=== PATIENT | male | born 2000 | race Caucasian/White ===

== ENCOUNTER 2020-04-23 17:08 | Inpatient (IN) | payer OTHER, SELFPAY ==
[~2020-04-23] VITALS: Ht 162.6 cm; Wt 74.8 kg
[2020-04-23 17:26] VITALS: BP_SYST 141
[2020-04-23] MEDS ORDERED: MIDAZOLAM HCL 5 MG/5 ML VIAL IVP ONE (17:45)
[2020-04-23] MEDS ORDERED: KETAMINE 30 MG/3 ML SYRINGE IVP ONE (17:45)
[2020-04-23 18:48] LABS: BASOPHILS % (AUTO) 0.2 % (0.0-2.0); HEMATOCRIT 51.4 % (36-54); HEMOGLOBIN 17.5 g/dL (14.0-18.0); LYMPHOCYTES # (AUTO) 0.6 K/uL (1.0-5.5); LYMPHOCYTES % (AUTO) 6.6 % (20.5-51.5); MEAN CORPUSCULAR HEMOGLOBIN 30 pg (27-31); MEAN CORPUSCULAR HGB CONC 34 % (32-36); MEAN CORPUSCULAR VOLUME 88 fL (79.0-98.0); MONOCYTES % (AUTO) 0.5 % (1.7-9.3); NEUTROPHILS # (AUTO) 8.6 K/uL (1.8-7.7); NEUTROPHILS % (AUTO) 92.7 % (40.0-70.0); PLATELET COUNT (AUTO) 299 K/uL (130-430); RED BLOOD CELL COUNT(AUTO) 5.82 MIL/uL (4.2-6.2); RED CELL DISTRIBUTION WIDTH 12.4 % (9.0-15.0); WHITE BLOOD COUNT (AUTO) 9.2 K/uL (4.8-10.8)
[2020-04-23 18:50] LABS: CALCIUM 10.3 mg/dL (8.4-11.0); CREATININE 1.22 mg/dL (0.55-1.30); POTASSIUM 3.8 mmol/L (3.5-5.1)
[2020-04-23 18:55] LABS: ALBUMIN 4.6 g/dL (3.4-4.8)
[2020-04-23 18:56] LABS: INR 1.1 (0.80-1.20); PROTHROMBIN TIME 10.8 SECS (9.5-12.5)
[2020-04-23] MEDS ORDERED: ONDANSETRON HCL 4 MG/2 ML VIAL ONE (19:07)
[2020-04-23] MEDS ORDERED: ONDANSETRON HCL 4 MG/2 ML VIAL IVP PRN (19:15)
[2020-04-23] MEDS ORDERED: LORazepam 2 MG/ML VIAL IVP PRN (19:15)
[2020-04-23] MEDS ORDERED: MUPIROCIN 2% TOPICAL OINTMENT 22 GM NS PRN (19:15)
[2020-04-23] MEDS ORDERED: ZOLPIDEM TARTRATE 5 MG TABLET PO PRN (19:15)
[2020-04-23] MEDS ORDERED: DOCUSATE SODIUM 100 MG CAPSULE PO PRN (19:15)
[2020-04-23] MEDS ORDERED: NACL 0.9% 1,000 ML IV SCH (19:15)
[2020-04-23] MEDS ORDERED: MAGNESIUM SULFATE 50 ML IV PRN (19:15)
[2020-04-23] MEDS ORDERED: MORPHINE 2 MG/ML INJ. SYRINGE IVP PRN (19:15)
[2020-04-23] MEDS ORDERED: POTASSIUM CHLORIDE 20 MEQ TAB.PRT.SR PO PRN (19:15)
[2020-04-23] MEDS: MORPHINE 4 MG/ML INJ. SYRINGE IVP PRN (23:09)
[2020-04-24] VITALS (7 sets, daily range): BP systolic 124–142
[2020-04-24] MEDS: MORPHINE 4 MG/ML INJ. SYRINGE IVP PRN (02:57)
[2020-04-24 07:18] LABS: BASOPHILS % (AUTO) 0.2 % (0.0-2.0); EOSINOPHILS % (AUTO) 0.1 % (0.0-4.0); HEMATOCRIT 51.9 % (36-54); HEMOGLOBIN 17.6 g/dL (14.0-18.0); LYMPHOCYTES # (AUTO) 2.3 K/uL (1.0-5.5); LYMPHOCYTES % (AUTO) 13.6 % (20.5-51.5); MEAN CORPUSCULAR HEMOGLOBIN 30 pg (27-31); MEAN CORPUSCULAR HGB CONC 34 % (32-36); MEAN CORPUSCULAR VOLUME 88 fL (79.0-98.0); MONOCYTES # (AUTO) 1.5 K/uL (0.0-1.0); MONOCYTES % (AUTO) 9.1 % (1.7-9.3); NEUTROPHILS # (AUTO) 12.9 K/uL (1.8-7.7); PLATELET COUNT (AUTO) 286 K/uL (130-430); RED BLOOD CELL COUNT(AUTO) 5.92 MIL/uL (4.2-6.2); RED CELL DISTRIBUTION WIDTH 12.8 % (9.0-15.0); WHITE BLOOD COUNT (AUTO) 16.8 K/uL (4.8-10.8)
[2020-04-24 08:10] LABS: CALCIUM 9.1 mg/dL (8.4-11.0); CREATININE 1.12 mg/dL (0.55-1.30); POTASSIUM 4.2 mmol/L (3.5-5.1)
[2020-04-24] MEDS: MORPHINE 2 MG/ML INJ. SYRINGE IVP PRN ×2 (09:13→17:22)
[2020-04-24] MEDS: BENZOCAINE/MENTHOL 1 EACH LOZENGE MM PRN ×2 (12:18→17:22)
[2020-04-24] MEDS ORDERED: LEVOFLOXACIN 500 MG/D5W 100 ML IV SCH (21:15)
[2020-04-24] MEDS: IPRATROPIUM/ALBUTEROL SULFATE 3 ML AMPUL.NEB (DUONEB) INH SCH (23:26)
[2020-04-24] MEDS ORDERED: AZITHROMYCIN 500 MG/VIAL (ZITHROMAX) IV ONE (23:28)
[2020-04-24] MEDS: AZITHROMYCIN 500 MG in NS 250 ML IV SCH (23:45)
[2020-04-25] MEDS: MORPHINE 2 MG/ML INJ. SYRINGE IVP PRN
[2020-04-25] MEDS: BENZOCAINE/MENTHOL 1 EACH LOZENGE MM PRN (00:45)
[2020-04-25] MEDS ORDERED: ENOXAPARIN SODIUM 30 MG/0.3 ML SYRINGE SUBCUT ONE (00:45)
[2020-04-25] MEDS: IPRATROPIUM/ALBUTEROL SULFATE 3 ML AMPUL.NEB (DUONEB) INH SCH ×4 (03:50→19:54)
[2020-04-25 07:18] LABS: BASOPHILS % (AUTO) 0.2 % (0.0-2.0); EOSINOPHILS # (AUTO) 0.3 K/uL (0.0-0.4); EOSINOPHILS % (AUTO) 2.8 % (0.0-4.0); HEMATOCRIT 45.1 % (36-54); HEMOGLOBIN 15.5 g/dL (14.0-18.0); LYMPHOCYTES # (AUTO) 3.3 K/uL (1.0-5.5); LYMPHOCYTES % (AUTO) 30.5 % (20.5-51.5); MEAN CORPUSCULAR HEMOGLOBIN 30 pg (27-31); MEAN CORPUSCULAR HGB CONC 34 % (32-36); MEAN CORPUSCULAR VOLUME 88 fL (79.0-98.0); MONOCYTES # (AUTO) 0.9 K/uL (0.0-1.0); MONOCYTES % (AUTO) 8.3 % (1.7-9.3); NEUTROPHILS # (AUTO) 6.3 K/uL (1.8-7.7); NEUTROPHILS % (AUTO) 58.2 % (40.0-70.0); PLATELET COUNT (AUTO) 249 K/uL (130-430); RED BLOOD CELL COUNT(AUTO) 5.14 MIL/uL (4.2-6.2); RED CELL DISTRIBUTION WIDTH 12.5 % (9.0-15.0); WHITE BLOOD COUNT (AUTO) 10.9 K/uL (4.8-10.8)
[2020-04-25 07:33] LABS: CALCIUM 8.7 mg/dL (8.4-11.0); CREATININE 1.12 mg/dL (0.55-1.30)
[2020-04-25 08:00] VITALS: BP_SYST 125
[2020-04-25] MEDS: MORPHINE 4 MG/ML INJ. SYRINGE IVP PRN ×4 (08:24→22:19)
[2020-04-25] MEDS: cefTRIAXone 1 GM in D5W 50 ML IV SCH (08:25)
[2020-04-25 12:00] VITALS: BP_SYST 135
[2020-04-25 16:00] VITALS: BP_SYST 132
[2020-04-25 20:00] VITALS: BP_SYST 142
[2020-04-25] MEDS: ENOXAPARIN SODIUM 40 MG/0.4 ML SYRINGE SUBCUT SCH (20:19)
[2020-04-25] MEDS: AZITHROMYCIN 500 MG in NS 250 ML IV SCH (20:20)
[2020-04-26] VITALS: BP_SYST 131
[2020-04-26] MEDS: IPRATROPIUM/ALBUTEROL SULFATE 3 ML AMPUL.NEB (DUONEB) INH SCH ×7 (00:12→23:42)
[2020-04-26 04:00] VITALS: BP_SYST 138
[2020-04-26] MEDS: MORPHINE 4 MG/ML INJ. SYRINGE IVP PRN (04:25)
[2020-04-26] MEDS ORDERED: HYDROmorphone 2 MG/ML VIAL IVP ONE (06:45)
[2020-04-26 07:44] LABS: BASOPHILS % (AUTO) 0.2 % (0.0-2.0); EOSINOPHILS # (AUTO) 0.4 K/uL (0.0-0.4); EOSINOPHILS % (AUTO) 5.6 % (0.0-4.0); HEMATOCRIT 40.8 % (36-54); LYMPHOCYTES % (AUTO) 40.4 % (20.5-51.5); MEAN CORPUSCULAR HEMOGLOBIN 30 pg (27-31); MEAN CORPUSCULAR HGB CONC 34 % (32-36); MEAN CORPUSCULAR VOLUME 88 fL (79.0-98.0); MONOCYTES # (AUTO) 0.5 K/uL (0.0-1.0); MONOCYTES % (AUTO) 7.4 % (1.7-9.3); NEUTROPHILS # (AUTO) 3.4 K/uL (1.8-7.7); NEUTROPHILS % (AUTO) 46.4 % (40.0-70.0); PLATELET COUNT (AUTO) 223 K/uL (130-430); RED BLOOD CELL COUNT(AUTO) 4.66 MIL/uL (4.2-6.2); RED CELL DISTRIBUTION WIDTH 12.4 % (9.0-15.0)
[2020-04-26 08:00] VITALS: BP_SYST 148
[2020-04-26 08:18] LABS: CALCIUM 8.8 mg/dL (8.4-11.0); CREATININE 0.91 mg/dL (0.55-1.30); POTASSIUM 3.9 mmol/L (3.5-5.1)
[2020-04-26 08:25] LABS: WHITE BLOOD COUNT (AUTO) 7.4 K/uL (4.8-10.8)
[2020-04-26] MEDS: cefTRIAXone 1 GM in D5W 50 ML IV SCH (09:28)
[2020-04-26 12:00] VITALS: BP_SYST 155
[2020-04-26 16:00] VITALS: BP_SYST 141
[2020-04-26 20:15] VITALS: BP_SYST 135
[2020-04-26] MEDS: AZITHROMYCIN 500 MG in NS 250 ML IV SCH (20:18)
[2020-04-26] MEDS: ENOXAPARIN SODIUM 40 MG/0.4 ML SYRINGE SUBCUT SCH (20:36)
[2020-04-26] MEDS: HYDROmorphone 2 MG/ML VIAL IVP PRN (22:16)
[2020-04-26] MEDS: BENZOCAINE/MENTHOL 1 EACH LOZENGE MM PRN (22:16)
[2020-04-27 00:25] VITALS: BP_SYST 128
[2020-04-27] MEDS: IPRATROPIUM/ALBUTEROL SULFATE 3 ML AMPUL.NEB (DUONEB) INH SCH ×5 (03:00→23:28)
[2020-04-27 06:52] LABS: BASOPHILS % (AUTO) 0.1 % (0.0-2.0); EOSINOPHILS # (AUTO) 0.2 K/uL (0.0-0.4); EOSINOPHILS % (AUTO) 2.6 % (0.0-4.0); HEMATOCRIT 41.5 % (36-54); HEMOGLOBIN 14.3 g/dL (14.0-18.0); LYMPHOCYTES # (AUTO) 2.3 K/uL (1.0-5.5); LYMPHOCYTES % (AUTO) 30.4 % (20.5-51.5); MEAN CORPUSCULAR HEMOGLOBIN 30 pg (27-31); MEAN CORPUSCULAR HGB CONC 35 % (32-36); MEAN CORPUSCULAR VOLUME 87 fL (79.0-98.0); MONOCYTES # (AUTO) 0.5 K/uL (0.0-1.0); MONOCYTES % (AUTO) 6.8 % (1.7-9.3); NEUTROPHILS # (AUTO) 4.5 K/uL (1.8-7.7); NEUTROPHILS % (AUTO) 60.1 % (40.0-70.0); PLATELET COUNT (AUTO) 235 K/uL (130-430); RED BLOOD CELL COUNT(AUTO) 4.76 MIL/uL (4.2-6.2); RED CELL DISTRIBUTION WIDTH 12.4 % (9.0-15.0); WHITE BLOOD COUNT (AUTO) 7.5 K/uL (4.8-10.8)
[2020-04-27 07:19] LABS: CALCIUM 8.8 mg/dL (8.4-11.0); CREATININE 0.97 mg/dL (0.55-1.30); POTASSIUM 3.7 mmol/L (3.5-5.1)
[2020-04-27 07:57] VITALS: BP_SYST 124
[2020-04-27] MEDS: cefTRIAXone 1 GM in D5W 50 ML IV SCH (09:13)
[2020-04-27] MEDS: HYDROmorphone 2 MG/ML VIAL IVP PRN ×2 (10:05→20:46)
[2020-04-27 11:27] VITALS: BP_SYST 120
[2020-04-27 15:32] VITALS: BP_SYST 147
[2020-04-27 20:45] VITALS: BP_SYST 132
[2020-04-27] MEDS: AZITHROMYCIN 500 MG in NS 250 ML IV SCH (20:49)
[2020-04-27] MEDS: ENOXAPARIN SODIUM 40 MG/0.4 ML SYRINGE SUBCUT SCH (21:01)
[2020-04-28 00:25] VITALS: BP_SYST 118
[2020-04-28] MEDS: IPRATROPIUM/ALBUTEROL SULFATE 3 ML AMPUL.NEB (DUONEB) INH SCH ×6 (03:00→23:11)
[2020-04-28 06:18] LABS: BASOPHILS % (AUTO) 0.1 % (0.0-2.0); EOSINOPHILS # (AUTO) 0.3 K/uL (0.0-0.4); EOSINOPHILS % (AUTO) 3.7 % (0.0-4.0); HEMATOCRIT 41.9 % (36-54); HEMOGLOBIN 14.4 g/dL (14.0-18.0); LYMPHOCYTES # (AUTO) 2.2 K/uL (1.0-5.5); LYMPHOCYTES % (AUTO) 31.7 % (20.5-51.5); MEAN CORPUSCULAR HEMOGLOBIN 30 pg (27-31); MEAN CORPUSCULAR HGB CONC 34 % (32-36); MEAN CORPUSCULAR VOLUME 88 fL (79.0-98.0); MONOCYTES # (AUTO) 0.5 K/uL (0.0-1.0); MONOCYTES % (AUTO) 7.1 % (1.7-9.3); NEUTROPHILS # (AUTO) 3.9 K/uL (1.8-7.7); NEUTROPHILS % (AUTO) 57.4 % (40.0-70.0); PLATELET COUNT (AUTO) 248 K/uL (130-430); RED BLOOD CELL COUNT(AUTO) 4.78 MIL/uL (4.2-6.2); RED CELL DISTRIBUTION WIDTH 12.2 % (9.0-15.0); WHITE BLOOD COUNT (AUTO) 6.8 K/uL (4.8-10.8)
[2020-04-28 07:29] LABS: CALCIUM 9.1 mg/dL (8.4-11.0); CREATININE 0.89 mg/dL (0.55-1.30); POTASSIUM 3.9 mmol/L (3.5-5.1)
[2020-04-28 08:00] VITALS: BP_SYST 128
[2020-04-28] MEDS: cefTRIAXone 1 GM in D5W 50 ML IV SCH (08:06)
[2020-04-28 12:23] VITALS: BP_SYST 135
[2020-04-28 16:00] VITALS: BP_SYST 125
[2020-04-28 20:01] VITALS: BP_SYST 128
[2020-04-28] MEDS: ENOXAPARIN SODIUM 40 MG/0.4 ML SYRINGE SUBCUT SCH (21:23)
[2020-04-28] MEDS: HYDROmorphone 2 MG/ML VIAL IVP PRN (21:24)
[2020-04-28] MEDS: AZITHROMYCIN 500 MG in NS 250 ML IV SCH (21:25)
[2020-04-29 00:25] VITALS: BP_SYST 126
[2020-04-29] MEDS: IPRATROPIUM/ALBUTEROL SULFATE 3 ML AMPUL.NEB (DUONEB) INH SCH ×6 (03:00→23:29)
[2020-04-29 08:00] VITALS: BP_SYST 126
[2020-04-29] MEDS: cefTRIAXone 1 GM in D5W 50 ML IV SCH (08:49)
[2020-04-29 11:25] VITALS: BP_SYST 126
[2020-04-29 12:00] VITALS: BP_SYST 123
[2020-04-29 16:00] VITALS: BP_SYST 127
[2020-04-29 20:15] VITALS: BP_SYST 136
[2020-04-29] MEDS: ENOXAPARIN SODIUM 40 MG/0.4 ML SYRINGE SUBCUT SCH (20:30)
[2020-04-29] MEDS: HYDROmorphone 2 MG/ML VIAL IVP PRN (22:15)
[2020-04-30 00:15] VITALS: BP_SYST 128
[2020-04-30] MEDS: IPRATROPIUM/ALBUTEROL SULFATE 3 ML AMPUL.NEB (DUONEB) INH SCH ×6 (03:00→23:19)
[2020-04-30 07:54] LABS: CALCIUM 9.5 mg/dL (8.4-11.0); CREATININE 1.01 mg/dL (0.55-1.30); POTASSIUM 4.1 mmol/L (3.5-5.1)
[2020-04-30 07:55] VITALS: BP_SYST 111
[2020-04-30 08:02] LABS: BASOPHILS % (AUTO) 0.2 % (0.0-2.0); EOSINOPHILS # (AUTO) 0.3 K/uL (0.0-0.4); EOSINOPHILS % (AUTO) 3.6 % (0.0-4.0); HEMATOCRIT 45.7 % (36-54); HEMOGLOBIN 15.5 g/dL (14.0-18.0); LYMPHOCYTES # (AUTO) 1.9 K/uL (1.0-5.5); MEAN CORPUSCULAR HEMOGLOBIN 30 pg (27-31); MEAN CORPUSCULAR HGB CONC 34 % (32-36); MEAN CORPUSCULAR VOLUME 88 fL (79.0-98.0); MONOCYTES # (AUTO) 0.4 K/uL (0.0-1.0); MONOCYTES % (AUTO) 5.7 % (1.7-9.3); NEUTROPHILS # (AUTO) 5.2 K/uL (1.8-7.7); NEUTROPHILS % (AUTO) 66.5 % (40.0-70.0); PLATELET COUNT (AUTO) 260 K/uL (130-430); RED BLOOD CELL COUNT(AUTO) 5.18 MIL/uL (4.2-6.2); RED CELL DISTRIBUTION WIDTH 12.2 % (9.0-15.0); WHITE BLOOD COUNT (AUTO) 7.9 K/uL (4.8-10.8)
[2020-04-30] MEDS: cefTRIAXone 1 GM in D5W 50 ML IV SCH (08:29)
[2020-04-30 11:54] VITALS: BP_SYST 110
[2020-04-30 12:00] VITALS: BP_SYST 126
[2020-04-30 16:00] VITALS: BP_SYST 119
[2020-04-30 20:30] VITALS: BP_SYST 137
[2020-04-30] MEDS: ENOXAPARIN SODIUM 40 MG/0.4 ML SYRINGE SUBCUT SCH (20:42)
[2020-04-30] MEDS: HYDROmorphone 2 MG/ML VIAL IVP PRN (22:50)
[2020-05-01 00:38] VITALS: BP_SYST 137
[2020-05-01] MEDS: IPRATROPIUM/ALBUTEROL SULFATE 3 ML AMPUL.NEB (DUONEB) INH SCH ×6 (03:00→23:00)
[2020-05-01] MEDS: HYDROmorphone 2 MG/ML VIAL IVP PRN (04:09)
[2020-05-01 05:29] LABS: BASOPHILS % (AUTO) 0.3 % (0.0-2.0); EOSINOPHILS # (AUTO) 0.3 K/uL (0.0-0.4); EOSINOPHILS % (AUTO) 2.9 % (0.0-4.0); HEMATOCRIT 45.4 % (36-54); HEMOGLOBIN 15.8 g/dL (14.0-18.0); LYMPHOCYTES # (AUTO) 2.6 K/uL (1.0-5.5); LYMPHOCYTES % (AUTO) 27.3 % (20.5-51.5); MEAN CORPUSCULAR HEMOGLOBIN 31 pg (27-31); MEAN CORPUSCULAR HGB CONC 35 % (32-36); MEAN CORPUSCULAR VOLUME 88 fL (79.0-98.0); MONOCYTES # (AUTO) 0.6 K/uL (0.0-1.0); MONOCYTES % (AUTO) 6.2 % (1.7-9.3); NEUTROPHILS # (AUTO) 5.9 K/uL (1.8-7.7); NEUTROPHILS % (AUTO) 63.3 % (40.0-70.0); PLATELET COUNT (AUTO) 288 K/uL (130-430); RED BLOOD CELL COUNT(AUTO) 5.17 MIL/uL (4.2-6.2); RED CELL DISTRIBUTION WIDTH 12.1 % (9.0-15.0); WHITE BLOOD COUNT (AUTO) 9.4 K/uL (4.8-10.8)
[2020-05-01 05:41] LABS: CALCIUM 9.6 mg/dL (8.4-11.0); CREATININE 0.94 mg/dL (0.55-1.30); POTASSIUM 3.8 mmol/L (3.5-5.1)
[2020-05-01 08:00] VITALS: BP_SYST 135
[2020-05-01] MEDS: cefTRIAXone 1 GM in D5W 50 ML IV SCH (08:16)
[2020-05-01 12:00] VITALS: BP_SYST 138
[2020-05-01 16:01] VITALS: BP_SYST 125
[2020-05-01 20:15] VITALS: BP_SYST 129
[2020-05-01] MEDS: ENOXAPARIN SODIUM 40 MG/0.4 ML SYRINGE SUBCUT SCH (21:34)
[2020-05-01] MEDS: MORPHINE 2 MG/ML INJ. SYRINGE IVP PRN (21:50)
[2020-05-02] VITALS (7 sets, daily range): BP systolic 110–146
[2020-05-02] MEDS: IPRATROPIUM/ALBUTEROL SULFATE 3 ML AMPUL.NEB (DUONEB) INH SCH ×5 (00:39→20:00)
[2020-05-02] MEDS: HYDROmorphone 2 MG/ML VIAL IVP PRN (04:04)
[2020-05-02 06:38] LABS: BASOPHILS % (AUTO) 0.1 % (0.0-2.0); EOSINOPHILS # (AUTO) 0.3 K/uL (0.0-0.4); EOSINOPHILS % (AUTO) 4.4 % (0.0-4.0); HEMATOCRIT 45.5 % (36-54); HEMOGLOBIN 15.6 g/dL (14.0-18.0); LYMPHOCYTES # (AUTO) 2.1 K/uL (1.0-5.5); LYMPHOCYTES % (AUTO) 31.2 % (20.5-51.5); MEAN CORPUSCULAR HEMOGLOBIN 30 pg (27-31); MEAN CORPUSCULAR HGB CONC 34 % (32-36); MEAN CORPUSCULAR VOLUME 87 fL (79.0-98.0); MONOCYTES # (AUTO) 0.5 K/uL (0.0-1.0); MONOCYTES % (AUTO) 6.8 % (1.7-9.3); NEUTROPHILS # (AUTO) 3.8 K/uL (1.8-7.7); NEUTROPHILS % (AUTO) 57.5 % (40.0-70.0); PLATELET COUNT (AUTO) 269 K/uL (130-430); RED BLOOD CELL COUNT(AUTO) 5.22 MIL/uL (4.2-6.2); RED CELL DISTRIBUTION WIDTH 12.4 % (9.0-15.0); WHITE BLOOD COUNT (AUTO) 6.7 K/uL (4.8-10.8)
[2020-05-02 07:49] LABS: CALCIUM 9.4 mg/dL (8.4-11.0); POTASSIUM 3.8 mmol/L (3.5-5.1)
[2020-05-02] MEDS: ENOXAPARIN SODIUM 40 MG/0.4 ML SYRINGE SUBCUT SCH (21:11)
[2020-05-03] VITALS: BP_SYST 123
[2020-05-03] MEDS: HYDROmorphone 2 MG/ML VIAL IVP PRN (01:31)
[2020-05-03] MEDS: IPRATROPIUM/ALBUTEROL SULFATE 3 ML AMPUL.NEB (DUONEB) INH SCH ×6 (03:00→23:00)
[2020-05-03 05:34] LABS: EOSINOPHILS # (AUTO) 0.3 K/uL (0.0-0.4); MONOCYTES # (AUTO) 0.6 K/uL (0.0-1.0); NEUTROPHILS # (AUTO) 5.5 K/uL (1.8-7.7)
[2020-05-03 06:02] LABS: CALCIUM 9.3 mg/dL (8.4-11.0); CREATININE 1.12 mg/dL (0.55-1.30); POTASSIUM 3.9 mmol/L (3.5-5.1)
[2020-05-03 06:25] LABS: BASOPHILS % (AUTO) 0.1 % (0.0-2.0); EOSINOPHILS % (AUTO) 3.2 % (0.0-4.0); HEMATOCRIT 43.9 % (36-54); HEMOGLOBIN 15.1 g/dL (14.0-18.0); LYMPHOCYTES # (AUTO) 2.3 K/uL (1.0-5.5); LYMPHOCYTES % (AUTO) 26.4 % (20.5-51.5); MEAN CORPUSCULAR HEMOGLOBIN 30 pg (27-31); MEAN CORPUSCULAR HGB CONC 34 % (32-36); MEAN CORPUSCULAR VOLUME 87 fL (79.0-98.0); MONOCYTES % (AUTO) 6.7 % (1.7-9.3); NEUTROPHILS % (AUTO) 63.6 % (40.0-70.0); PLATELET COUNT (AUTO) 279 K/uL (130-430); RED BLOOD CELL COUNT(AUTO) 5.05 MIL/uL (4.2-6.2); RED CELL DISTRIBUTION WIDTH 12.1 % (9.0-15.0); WHITE BLOOD COUNT (AUTO) 8.6 K/uL (4.8-10.8)
[2020-05-03 11:59] VITALS: BP_SYST 125
[2020-05-03 17:08] VITALS: BP_SYST 132
[2020-05-03 20:00] VITALS: BP_SYST 125
[2020-05-03] MEDS: ENOXAPARIN SODIUM 40 MG/0.4 ML SYRINGE SUBCUT SCH (21:45)
[2020-05-04] MEDS: HYDROmorphone 2 MG/ML VIAL IVP PRN ×2 (00:08→23:20)
[2020-05-04] MEDS: IPRATROPIUM/ALBUTEROL SULFATE 3 ML AMPUL.NEB (DUONEB) INH SCH ×6 (03:00→23:46)
[2020-05-04 04:00] VITALS: BP_SYST 136
[2020-05-04 08:00] VITALS: BP_SYST 134
[2020-05-04 08:19] LABS: BASOPHILS % (AUTO) 0.2 % (0.0-2.0); EOSINOPHILS # (AUTO) 0.3 K/uL (0.0-0.4); EOSINOPHILS % (AUTO) 3.4 % (0.0-4.0); HEMATOCRIT 44.2 % (36-54); HEMOGLOBIN 15.2 g/dL (14.0-18.0); LYMPHOCYTES # (AUTO) 2.2 K/uL (1.0-5.5); MEAN CORPUSCULAR HEMOGLOBIN 30 pg (27-31); MEAN CORPUSCULAR HGB CONC 35 % (32-36); MEAN CORPUSCULAR VOLUME 87 fL (79.0-98.0); MONOCYTES # (AUTO) 0.4 K/uL (0.0-1.0); MONOCYTES % (AUTO) 5.2 % (1.7-9.3); NEUTROPHILS # (AUTO) 5.2 K/uL (1.8-7.7); NEUTROPHILS % (AUTO) 64.2 % (40.0-70.0); PLATELET COUNT (AUTO) 263 K/uL (130-430); RED BLOOD CELL COUNT(AUTO) 5.08 MIL/uL (4.2-6.2); RED CELL DISTRIBUTION WIDTH 12.1 % (9.0-15.0); WHITE BLOOD COUNT (AUTO) 8.1 K/uL (4.8-10.8)
[2020-05-04] MEDS: ACETAMINOPHEN 325 MG TABLET PO PRN (08:20)
[2020-05-04 08:52] LABS: CALCIUM 9.2 mg/dL (8.4-11.0); CREATININE 1.16 mg/dL (0.55-1.30); POTASSIUM 3.8 mmol/L (3.5-5.1)
[2020-05-04 12:03] VITALS: BP_SYST 122
[2020-05-04 16:34] VITALS: BP_SYST 126
[2020-05-04] MEDS: ENOXAPARIN SODIUM 40 MG/0.4 ML SYRINGE SUBCUT SCH (20:58)
[2020-05-05 00:59] VITALS: BP_SYST 114
[2020-05-05] MEDS: IPRATROPIUM/ALBUTEROL SULFATE 3 ML AMPUL.NEB (DUONEB) INH SCH ×6 (03:00→23:00)
[2020-05-05] MEDS: HYDROmorphone 2 MG/ML VIAL IVP PRN (04:00)
[2020-05-05 08:00] VITALS: BP_SYST 118
[2020-05-05 08:47] VITALS: BP_SYST 114
[2020-05-05 12:00] VITALS: BP_SYST 116
[2020-05-05 16:00] VITALS: BP_SYST 122
[2020-05-05] MEDS: ACETAMINOPHEN 325 MG TABLET PO PRN (16:28)
[2020-05-05] MEDS: ENOXAPARIN SODIUM 40 MG/0.4 ML SYRINGE SUBCUT SCH (20:44)
[2020-05-06 00:50] VITALS: BP_SYST 128
[2020-05-06] MEDS: ACETAMINOPHEN 325 MG TABLET PO PRN (01:22)
[2020-05-06] MEDS: IPRATROPIUM/ALBUTEROL SULFATE 3 ML AMPUL.NEB (DUONEB) INH SCH ×6 (03:00→23:15)
[2020-05-06] MEDS: HYDROmorphone 2 MG/ML VIAL IVP PRN (05:17)
[2020-05-06 08:00] VITALS: BP_SYST 128
[2020-05-06 12:05] VITALS: BP_SYST 130
[2020-05-06 16:10] VITALS: BP_SYST 127
[2020-05-06 20:00] VITALS: BP_SYST 131
[2020-05-06] MEDS: ENOXAPARIN SODIUM 40 MG/0.4 ML SYRINGE SUBCUT SCH (21:13)
[2020-05-07 00:41] VITALS: BP_SYST 121
[2020-05-07] MEDS: ACETAMINOPHEN 325 MG TABLET PO PRN ×3 (03:12→16:50)
[2020-05-07] MEDS: IPRATROPIUM/ALBUTEROL SULFATE 3 ML AMPUL.NEB (DUONEB) INH SCH ×6 (03:30→23:10)
[2020-05-07 08:00] VITALS: BP_SYST 118
[2020-05-07 12:05] VITALS: BP_SYST 126
[2020-05-07 16:00] VITALS: BP_SYST 120
[2020-05-07 20:10] VITALS: BP_SYST 126
[2020-05-07] MEDS: ENOXAPARIN SODIUM 40 MG/0.4 ML SYRINGE SUBCUT SCH (21:03)
[2020-05-08] MEDS: HYDROmorphone 2 MG TAB PO PRN ×3 (00:12→18:40)
[2020-05-08 00:50] VITALS: BP_SYST 119
[2020-05-08] MEDS: ACETAMINOPHEN 325 MG TABLET PO PRN (01:06)
[2020-05-08] MEDS: IPRATROPIUM/ALBUTEROL SULFATE 3 ML AMPUL.NEB (DUONEB) INH SCH ×6 (03:30→23:46)
[2020-05-08 06:21] LABS: BASOPHILS % (AUTO) 0.3 % (0.0-2.0); EOSINOPHILS # (AUTO) 0.7 K/uL (0.0-0.4); EOSINOPHILS % (AUTO) 8.6 % (0.0-4.0); HEMATOCRIT 45.5 % (36-54); HEMOGLOBIN 15.6 g/dL (14.0-18.0); LYMPHOCYTES # (AUTO) 3.1 K/uL (1.0-5.5); LYMPHOCYTES % (AUTO) 36.7 % (20.5-51.5); MEAN CORPUSCULAR HEMOGLOBIN 30 pg (27-31); MEAN CORPUSCULAR HGB CONC 34 % (32-36); MEAN CORPUSCULAR VOLUME 88 fL (79.0-98.0); MONOCYTES # (AUTO) 0.5 K/uL (0.0-1.0); MONOCYTES % (AUTO) 5.6 % (1.7-9.3); NEUTROPHILS # (AUTO) 4.1 K/uL (1.8-7.7); NEUTROPHILS % (AUTO) 48.8 % (40.0-70.0); PLATELET COUNT (AUTO) 280 K/uL (130-430); RED CELL DISTRIBUTION WIDTH 11.9 % (9.0-15.0); WHITE BLOOD COUNT (AUTO) 8.3 K/uL (4.8-10.8)
[2020-05-08 06:34] LABS: CALCIUM 9.7 mg/dL (8.4-11.0); CREATININE 1.12 mg/dL (0.55-1.30); POTASSIUM 3.6 mmol/L (3.5-5.1)
[2020-05-08 08:00] VITALS: BP_SYST 125
[2020-05-08 10:01] VITALS: BP_SYST 119
[2020-05-08 12:13] VITALS: BP_SYST 116
[2020-05-08 16:13] VITALS: BP_SYST 107
[2020-05-08 20:00] VITALS: BP_SYST 118
[2020-05-08] MEDS: ENOXAPARIN SODIUM 40 MG/0.4 ML SYRINGE SUBCUT SCH (20:15)
[2020-05-09 00:08] VITALS: BP_SYST 111
[2020-05-09] MEDS: HYDROmorphone 2 MG TAB PO PRN ×2 (00:44→08:04)
[2020-05-09] MEDS: IPRATROPIUM/ALBUTEROL SULFATE 3 ML AMPUL.NEB (DUONEB) INH SCH ×4 (03:00→11:17)
[2020-05-09 06:37] LABS: CALCIUM 9.3 mg/dL (8.4-11.0); CREATININE 1.08 mg/dL (0.55-1.30); POTASSIUM 3.6 mmol/L (3.5-5.1)
[2020-05-09 06:40] LABS: BASOPHILS % (AUTO) 0.2 % (0.0-2.0); EOSINOPHILS # (AUTO) 0.9 K/uL (0.0-0.4); EOSINOPHILS % (AUTO) 10.7 % (0.0-4.0); HEMATOCRIT 44.4 % (36-54); HEMOGLOBIN 15.1 g/dL (14.0-18.0); LYMPHOCYTES # (AUTO) 3.2 K/uL (1.0-5.5); LYMPHOCYTES % (AUTO) 40.1 % (20.5-51.5); MEAN CORPUSCULAR HEMOGLOBIN 30 pg (27-31); MEAN CORPUSCULAR HGB CONC 34 % (32-36); MEAN CORPUSCULAR VOLUME 87 fL (79.0-98.0); MONOCYTES # (AUTO) 0.5 K/uL (0.0-1.0); MONOCYTES % (AUTO) 6.2 % (1.7-9.3); NEUTROPHILS # (AUTO) 3.4 K/uL (1.8-7.7); NEUTROPHILS % (AUTO) 42.8 % (40.0-70.0); PLATELET COUNT (AUTO) 272 K/uL (130-430); RED BLOOD CELL COUNT(AUTO) 5.09 MIL/uL (4.2-6.2); RED CELL DISTRIBUTION WIDTH 12.1 % (9.0-15.0); WHITE BLOOD COUNT (AUTO) 8.1 K/uL (4.8-10.8)
[2020-05-09 08:08] VITALS: BP_SYST 113
[2020-05-09 12:01] VITALS: BP_SYST 134
[2020-05-09 12:17] VITALS: BP_SYST 134
== END 2020-05-09 17:30 | disposition short-term general hospital (02) | DRG 199 ==
LOC: SED 17:08 → STU 19:10 → SMU 04-29 10:30
PROVIDERS: ADMIT General Practice; ATTEND General Practice
PROC: 0W9930Z Drainage of Right Pleural Cavity with Drainage Device, Percutaneous Approach (ICD-10-PCS; principal; 2020-04-23)
DX: J93.9 Pneumothorax, unspecified (principal); J18.9 Pneumonia, unspecified organism; J96.01 Acute respiratory failure with hypoxia; E87.1 Hypo-osmolality and hyponatremia; J20.9 Acute bronchitis, unspecified; Z20.828 Contact with and (suspected) exposure to other viral communicable diseases; J98.2 Interstitial emphysema; Z79.899 Other long term (current) drug therapy
CPT/HCPCS: 36415; 71045; 71046-TC; 71250-TC; 80048; 80053; 83036; 83735-TC; 85025; 85610-TC; 85730-TC; 87040-TC; 93005; 94640; 94760; 99285; G0378; J0456; J0696; J1170; J1650; J2250; J2270; J2405; J3475; J7050; J7060; U0003-CS